=== PATIENT | female | born 1960 | race Caucasian/White ===

== ENCOUNTER → 2019-11-14 09:57 | Outpatient (CLI) | payer OTHER, SELFPAY ==
--- NOTE | ~2019-11-14 | MM_ITS ---
EXAMINATION: MM screening on[facility] BI w uri HISTORY: Screening mammogram TECHNIQUE: Craniocaudal and mediolateral oblique 3-D tomosynthesis images were obtained and synthetic 2-D images were generated. CAD analysis was submitted and interpreted. COMPARISON: 08/10/2018, 01/30/2017, 09/30/2012 bilateral digital screening mammogram examinations BREAST PARENCHYMAL COMPOSITION: There are scattered areas of fibroglandular density. FINDINGS: Mild fibroglandular asymmetry, stable since 09/30/2012. There is no evidence of suspicious ma ss, calcification, or architectural distortion to suggest malignancy in either breast. There has been no suspicious interval change. IMPRESSION: 1. No mammographic evidence of malignancy. 2. Recommend routine screening mammography in one year. BI-RADS Category 2: Benign finding(s). Reviewed, dictated and finalized at location A.
== END ==
PROVIDERS: Visit Provider Nurse Practitioner Obstetrics & Gynecology
DX: Z12.31 Encounter for screening mammogram for malignant neoplasm of breast (principal)
CPT/HCPCS: 77063; 77067

== ENCOUNTER → 2020-05-07 13:19 | Outpatient (CLI) | payer OTHER, SELFPAY ==
--- NOTE | ~2020-05-07 | US_ITS ---
US renal BI 05/07/2020 13:39 Procedure: Realtime transabdominal ultrasound of the kidneys and bladder. 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 There is a large left renal cyst measuring 9 cm. No solid masses, hydronephrosis or stone. Left kidney measures 9.8 cm in length. Latter is not well dist ended for evaluation. Impression: 1: Left renal cyst measuring 9 cm. Reviewed, dictated and finalized at location B. [employer] Impression: 1: Left renal cyst measuring 9 cm.
== END ==
PROVIDERS: Visit Provider Urology
DX: N28.1 Cyst of kidney, acquired (principal)
CPT/HCPCS: 76775

== ENCOUNTER → 2021-07-07 12:27 | Outpatient (REF) | payer OTHER, SELFPAY | LOC: ANHLAB 12:27 | PROVIDERS: PCP Family Medicine; Visit Provider Nurse Practitioner | DX: C44.619 Basal cell carcinoma of skin of left upper limb, including shoulder (principal) | CPT/HCPCS: 88305 ==

== ENCOUNTER → 2022-08-01 12:24 | Outpatient (CLI) | payer OTHER, SELFPAY ==
--- NOTE | ~2022-08-01 | US_ITS ---
Renal-Bladder ultrasound Clinical History: Renal cyst Technique: Real-time sonographic imaging of the kidneys and urinary bladder was performed. Findings: The left kidney measures 11.9 cm. There is no left hydronephrosis or left renal calculus id entified. Left renal cortical echogenicity is within normal limits. Left lower pole simple cyst prese nt. Right kidney is absent. The urinary bladder is moderately distended at the time of this exam. No intraluminal echoes are iden tified. No abnormal wall thickening is seen. Impression: Left lower pole simple renal cyst. Right kidney absent. Reviewed, dictated and finalized at location . Impression: Left lower pole simple renal cyst. Right kidney absent.
== END ==
PROVIDERS: PCP Family Medicine; Visit Provider Urology
DX: N28.1 Cyst of kidney, acquired (principal)
CPT/HCPCS: 76775

== ENCOUNTER → 2022-08-01 12:49 | Outpatient (CLI) | payer OTHER, SELFPAY ==
--- NOTE | ~2022-08-01 | MM_ITS ---
EXAMINATION: MM screening onelia BI w uri HISTORY: Screening mammogram, family history of breast cancer in her mother. TECHNIQUE: Craniocaudal and mediolateral oblique 3-D tomosynthesis images were obtained and synthetic 2-D images were generated. CAD analysis was submitted and interpreted. COMPARISON: 11/14/2019, 07/31/2018, 01/30/2017 BREAST PARENCHYMAL COMPOSITION: There are scattered areas of fibroglandular density. FINDINGS: No suspicious mass, calcification, or architectural distortion are identified in either harlan ast to suggest malignancy. There has been no suspicious interval change. IMPRESSION: 1. No mammographic evidence of malignancy. 2. Recommend routine screening mammography in one year. BI-RADS Category 1: Negative Reviewed, dictated and finalized at location A.
== END ==
PROVIDERS: PCP Family Medicine; Visit Provider Family Medicine
DX: Z12.31 Encounter for screening mammogram for malignant neoplasm of breast (principal)
CPT/HCPCS: 77063; 77067